=== PATIENT | female | born 1970 | race Caucasian/White ===

== ENCOUNTER 2016-10-27 07:44 | Emergency (ER) | payer BC ==
[~2016-10-27] VITALS: Ht 175.3 cm; Wt 120.0 kg
[2016-10-27 07:48] VITALS: BP 125/88; PULSE 73; RESP 16; TEMP 97.7; O2SAT 97
[2016-10-27] MEDS ORDERED: HYDR-3133 PO (08:01)
[2016-10-27] MEDS ORDERED: GABA300C5 PO (08:01)
[2016-10-27] MEDS ORDERED: BUSP30TA PO (08:01)
[2016-10-27] MEDS ORDERED: DEPA500T PO (08:01)
[2016-10-27] MEDS ORDERED: VENL37.5 PO (08:01)
[2016-10-27] MEDS ORDERED: HYDR50TA94 PO (08:01)
[2016-10-27] MEDS ORDERED: ACETAMINOPHEN 500 MG CPLT PO ONE (08:30)
[2016-10-27 08:57] LABS: AUTOMATED NEUTROPHIL # 3.4 TH/MM3 (1.8-7.7); BASOPHIL % 0.5 % (0.0-2.0); EOSINOPHIL # 0.1 TH/MM3 (0-0.4); EOSINOPHIL % 1.4 % (0.0-4.0); HEMATOCRIT 37.8 % (35.0-46.0); HEMO FLAGS DIFF FINAL; LYMPH % 32.1 % (9.0-44.0); LYMPHOCYTE # 1.9 TH/MM3 (1.0-4.8); MEAN CORPUSCULAR HEMOGLOBIN 29.9 PG (27.0-34.0); MEAN CORPUSCULAR HGB CONC 33.2 % (32.0-36.0); MONO % 6.4 % (0.0-8.0); NEUT % 59.6 % (16.0-70.0); PLATELET COUNT 194 TH/MM3 (150-450); RED CELL DISTRIBUTION WIDTH 13.8 % (11.6-17.2); WHITE BLOOD COUNT 5.8 TH/MM3 (4.0-11.0)
[2016-10-27 08:59] LABS: BACTERIA, URINE RARE /hpf; BLOOD, URINE NEG (NEG); COMMENT (UR) CULT NOT INDICATED; CULTURE IF INDICATED CULT NOT INDICATED; GLUCOSE,URINE NEG (NEG); KETONE, URINE NEG (NEG); MUCUS URINE MANY /lpf (OCC); NITRITE,URINE NEG (NEG); SQUAMOUS EPITHELIAL CELL URINE 7 /hpf (0-5); URINE COLOR YELLOW (YELLW/STRAW)
[2016-10-27 09:17] LABS: BICARBONATE 25.4 MEQ/L (21.0-32.0); POTASSIUM 4.2 MEQ/L (3.5-5.1)
--- NOTE | 2016-10-27 09:40 | RADRPT ---
EXAM DATE/TIME: 10/27/2016 08:54 [place] COMPARISON: No previous studies available for comparison. INDICATIONS : Bilateral leg swelling. MEDICAL HISTORY : Deep venous thrombosis. Seizures. Depression. SURGICAL HISTORY : Tonsillectomy. section. Right foot surgery. ENCOUNTER: Initial ACUITY: 3 days PAIN SCORE: 8/10 LOCATION: Bilateral leg. TECHNIQUE: Venous ultrasound of the left and right leg was performed from the inguinal ligament to the proximal calf. Real-time, color Doppler and spectral tracing, compression and augmentation techniques were us ed. FINDINGS: RIGHT LEG: There is normal compressibility of the deep venous system from the inguinal region to the proximal ca lf. No echogenic clot is seen in the lumen of the common femoral, femoral, popliteal, and posterior tibial veins. There is a normal response of the venous system to proximal and distal augmentation an d respiration. LEFT LEG: There is normal compressibility of the deep venous system from the inguinal region to the proximal ca lf. No echogenic clot is seen in the lumen of the common femoral, femoral, popliteal, and posterior tibial veins. There is a normal response of the venous system to proximal and distal augmentation an d respiration. CONCLUSION: Normal examination. Franco Rodríguez MD on October 27, 2016 at 9:37 Board Certified Radiologist. This report was verified electronically.
--- NOTE | 2016-10-27 09:49 | PD ---
HPI Chief Complaint: Edema Time Seen by Provider: 08:09 Travel History International Travel<30 days: No Contact w/Intl Traveler<30days: No Traveled to known affect area: No History of Present Illness HPI This is a 45-year-old female who presents to the emergency department with swelling in both legs, constant, moderate severity worse ever since she traveled from [place] several days ago in a car. She denies any shortness of breath or chest pain. She was diagnosed with a blood clot years ago. She is not currently on any anticoagulation. PFSH Past Medical History Depression: Yes Deep Vein Thrombosis: Yes Seizures: Yes ?: Not : 9 Para: 8 Miscarriage: 1 Past Surgical History Section: Yes (X4) Tonsillectomy: Yes Social History Alcohol Use: Yes (RARE) Tobacco Use: Yes (1/2 PPD) Substance Use: No Allergies-Medications (Allergen,Severity, Reaction): Coded Allergies: Penicillin (Verified Allergy, Severe, 10/27/16) Reported Meds & Prescriptions Reported Meds & Active Scripts Active Reported Buspirone (Buspirone HCl) 30 Mg Tab 30 Mg PO BID Depakote DR (Divalproex Sodium) 500 Mg Tabdr 500 Mg PO BID Gabapentin 300 Mg Cap 300 Mg PO HS Hydroxyzine HCl 25 Mg Tab 25 Mg PO QID PRN Hydroxyzine HCl 50 Mg Tab 50 Mg PO HS Effexor (Venlafaxine HCl) 37.5 Mg Tab 37.5 Mg PO Q12H Review of Systems Except as stated in HPI: all other systems reviewed are Neg Physical Exam Narrative GENERAL:Well appearing, no acute distress SKIN: Focused skin assessment warm and dry. HEAD: Atraumatic. Normocephalic. EYES: Pupils equal and round. No injection or drainage. ENT: Moist mucous membranes NECK: Trachea midline. CARDIOVASCULAR: Regular rate and rhythm. No murmur appreciated. RESPIRATORY: Clear to auscultation. Breath sounds equal bilaterally. GASTROINTESTINAL: Abdomen soft, non-tender, nondistended. MUSCULOSKELETAL: Nonpitting edema in the bilateral lower extremities. NEUROLOGICAL: Awake and alert. No obvious cranial nerve deficits. Moving all extremities. PSYCHIATRIC: Appropriate mood and affect; insight and judgment normal. Data Data Last Documented VS Vital Signs Date Time Temp Pulse Resp B/P Pulse Ox O2 Delivery O2 Flow Rate FiO2 10/27/16 07:48 97.7 73 16 125/88 97 Orders Us Leg Venous Doppler Bilat (10/27/16 ) Complete Blood Count With Diff (10/27/16 08:09) Basic Metabolic Panel (Bmp) (10/27/16 08:09) B-Type Natriuretic Peptide (10/27/16 08:09) Urinalysis - C+S If Indicated (10/27/16 08:09) Acetaminophen (Tylenol) (10/27/16 08:30) Labs Laboratory Tests Test 10/27/16 10/27/16 08:30 08:35 White Blood Count 5.8 TH/MM3 Red Blood Count 4.20 MIL/MM3 Hemoglobin 12.6 GM/DL Hematocrit 37.8 % Mean Corpuscular Volume 90.0 FL Mean Corpuscular Hemoglobin 29.9 PG Mean Corpuscular Hemoglobin 33.2 % Concent Red Cell Distribution Width 13.8 % Platelet Count 194 TH/MM3 Mean Platelet Volume 8.2 FL Neutrophils (%) (Auto) 59.6 % Lymphocytes (%) (Auto) 32.1 % Monocytes (%) (Auto) 6.4 % Eosinophils (%) (Auto) 1.4 % Basophils (%) (Auto) 0.5 % Neutrophils # (Auto) 3.4 TH/MM3 Lymphocytes # (Auto) 1.9 TH/MM3 Monocytes # (Auto) 0.4 TH/MM3 Eosinophils # (Auto) 0.1 TH/MM3 Basophils # (Auto) 0.0 TH/MM3 CBC Comment DIFF FINAL Differential Comment Sodium Level 140 MEQ/L Potassium Level 4.2 MEQ/L Chloride Level 105 MEQ/L Carbon Dioxide Level 25.4 MEQ/L Anion Gap 10 MEQ/L Blood Urea Nitrogen 20 MG/DL Creatinine 0.96 MG/DL Estimat Glomerular Filtration 63 ML/MIN Rate Random Glucose 107 MG/DL Calcium Level 8.3 MG/DL B-Type Natriuretic Peptide 47 PG/ML Urine Color YELLOW Urine Turbidity HAZY Urine pH 6.0 Urine Specific [place] 1.041 Urine Protein TRACE mg/dL Urine Glucose (UA) NEG mg/dL Urine Ketones NEG mg/dL Urine Occult Blood NEG Urine Nitrite NEG Urine Bilirubin NEG Urine Urobilinogen 2.0 MG/DL Urine Leukocyte Esterase NEG Urine RBC 5 /hpf Urine WBC 1 /hpf Urine Squamous Epithelial 7 /hpf Cells Urine Bacteria RARE /hpf Urine Mucus MANY /lpf Microscopic Urinalysis Comment CULT NOT INDICATED MDM Medical Decision Making Medical Screen Exam Complete: Yes Emergency Medical Condition: Yes Interpretation(s) Afebrile, no tachycardia, normotensive No leukocytosis Electrolytes are reassuring BNP is 47 Urinalysis: No infection Differential Diagnosis DVT, lymphedema, dependent edema, cellulitis Narrative Course This is a 45-year-old female who presents to the emergency department with lower extremity swelling. She has a history of DVT in the past and recently was on a long car ride from [place]. She was placed on a monitor and an IV was established. Vital signs are reassuring. Labs were unremarkable. Doppler ultrasound of both legs was negative for DVT. Patient was advised to have a repeat ultrasound in 10 days. I suspect her symptoms are due to dependent edema following a long car ride. Diagnosis Primary Impression: Dependent edema Patient Instructions: General Instructions Additional Instructions: If you develop severe chest pain, shortness of breath, sweating, lightheadedness , dizziness or difficulty breathing return to the emergency department immediately. Followup for a repeat ultrasound in 10 days. Med/Other Pt SpecificInfo: No Change to Meds Disposition: 01 DISCHARGE HOME Condition: Stable Sonia Valdes MD October 27, 2016 09:48
== END 2016-10-27 10:08 | disposition home or self-care (01) ==
LOC: NEPC 07:44
DX: R60.0 Localized edema (principal); F17.210 Nicotine dependence, cigarettes, uncomplicated; Z86.718 Personal history of other venous thrombosis and embolism
CPT/HCPCS: 80048; 81001; 83880; 85025; 93970